=== PATIENT | female | born 1980 | race Two or more races ===

== ENCOUNTER 2020-05-22 05:52 | Day surgery (SDC) | payer OTHER | END 2020-05-22 10:10 | disposition home or self-care (01) | LOC: AMB-ENDOS 05:52 | PROVIDERS: ATTEND Surgery | DX: D13.0 Benign neoplasm of esophagus (principal); K44.9 Diaphragmatic hernia without obstruction or gangrene; Z20.822 Contact with and (suspected) exposure to COVID-19 ==

== ENCOUNTER 2021-01-21 06:33 | Day surgery (SDC) | payer OTHER ==
[2021-01-21] MEDS ORDERED: POLY119PG PO (11:48)
[2021-01-21] MEDS ORDERED: PERCOCET 5-3251 EACH PO (11:48)
[2021-01-21] MEDS ORDERED: PEPCID AC20 MG PO (11:48)
== END 2021-01-21 15:00 | disposition home or self-care (01) ==
LOC: CIR.AMB 06:33
PROVIDERS: ATTEND Surgery
DX: K43.2 Incisional hernia without obstruction or gangrene (principal); K80.10 Calculus of gallbladder with chronic cholecystitis without obstruction; K42.9 Umbilical hernia without obstruction or gangrene; Z20.822 Contact with and (suspected) exposure to COVID-19